=== PATIENT | female | born 1970 | race Caucasian/White ===

== ENCOUNTER 2023-05-06 17:34 | Emergency (ER) | payer OTHER, SELFPAY ==
[2023-05-06 17:35] VITALS: BP 140/73; PULSE 85; RESP 17; TEMP 36.2; O2SAT 98; BMI 26.0
--- NOTE | 2023-05-06 17:35 | RAD_ITS ---
INDICATION: Trauma, fall, ankle injury EXAMINATION/TECHNIQUE: X-RAY - RIGHT XR Ankle Min 3 Views 3 VIEWS COMPARISON: None. FINDINGS: SOFT TISSUES: No soft tissue swelling or gas. No radiopaque foreign body. BONES/JOINTS: Small piece of avulsed cortex at the dorsum of the anterior talus. Possible second fragment at the dorsal aspect of the tarsal navicular. Joint spaces anatomically aligned. No sclerotic or destructive changes observed. RAD/Ankle min 3 Views IMPRESSION: Cortical avulsion fracture from the dorsum of the anterior talus with possible second cortical avulsion fracture from the dorsum of the navicular. Electronically Signed: Robe Givens MD at 17:51 EDT ,
--- NOTE | 2023-05-06 19:10 | EDS_ITS ---
HPI History of Present Illness Chief Complaint: Lower Extremity Injury Informant: patient Narrative Narrative: Patient stumbled tripped and hurt her left foot ankle area shortly before arrival. No other injury. Hurts a little bit to bear weight but she is able t o. No pain above the ankle at all. No history of abnormal bone structure or significant prior injury to this ankle. She is not on any anticoagulation. [facility] Medical History Anxiety disorder Asthma Depression Fibroids Hyperlipidemia Maxillary sinusitis, acute Urinary tract infection Home Medications coenzyme [id number] E 100 mg-100 unit capsule cap PO 04/12/18 [History Last Taken Unknown] omega-3 fatty acids 1,000 mg capsule (Fish Oil Concentrate) 1,000 mg PO QDAY 04/12/18 [History Last Taken Unknown] vitamin B complex (B Complex-Vitamin B12 tablet) 1 tab PO QDAY 04/12/18 [History Last Taken Unknown] L.acidoph, paracasei,B. lactis 10 billion cell capsule (Digestive Advantage Advanced Probiotic) cell PO 05/13/21 [History Last Taken Unknown] cholecalciferol (vitamin D3) 125 mcg (5,000 unit) capsule 125 mcg PO DAILY 05/13/21 [History Last Taken Unknown] multivitamin 1 tab PO DAILY 05/13/21 [History Last Taken Unknown] vitamin B complex (B Complex-Vitamin B12 tablet) 1 tab PO DAILY 05/13/21 [Hist ory Last Taken Unknown] albuterol sulfate 90 mcg/actuation aerosol inhaler (Ventolin HFA) 2 puff inhalation Q4H PRN asthma #37.2 grams 10/14/21 [Rx Last Taken Unknown] fluoxetine 20 mg capsule 20 mg PO DAILY depression #90 caps 10/14/21 [Rx Last Taken Unknown] fluticasone propionate 50 mcg/actuation nasal spray,suspension (Allergy Relief (fluticasone)) 1 spray intranasal BID 10/14/21 [History Last Taken Unknown] ibuprofen 800 mg tablet 800 mg PO BID PRN dysmenorrhea #90 tabs 10/14/21 [Rx Last Taken Unknown] azelastine 137 mcg (0.1 %) nasal spray aerosol 2 spray intranasal QDAY #90 mL 04/28/22 [Rx Last Taken Unknown] fluticasone propionate 113 mcg/actuation breath activated pwdr inhal,sensor 1 inh inhalation BID #2 ea 05/25/22 [Rx Last Taken Unknown] amoxicillin 875 mg-potassium clavulanate 125 mg tablet 1 tab PO BID #20 tabs 07/15/22 [Rx Last Taken Unknown] fluconazole 150 mg tablet 150 mg PO Q3D 2 doses #2 tabs 07/15/22 [Rx Last Taken Unknown] prednisone 20 mg tablet 40 mg (2 x 20 mg) PO DAILY #20 tabs 07/15/22 [Rx Last Taken Unknown] clarithromycin 500 mg tablet 500 mg PO BID #20 tabs 07/27/22 [Rx Last Taken Unknown] Allergy/AdvReac Type Severity Reaction Status Date / Time No Known Allergies Allergy Verified 05/06/23 17:35 Family History Mother Breast cancer Diabetes Father Myocardial infarction Grandmother Myocardial infarction Daughter Thyroid disorder Social History Smoking Status: Never smoker second hand exposure: Yes alcohol intake: current details: mixed drink every few months substance use type: does not use what type of physical activity do you participate in: none and other details: 15,000 steps per day at restaurant ROS ROS ED Constitutional Constitutional ED: Denies chills or fever(s) Cardiovascular Cardiovascular: Denies chest pain Respiratory/Chest Respiratory/Chest: Denies cough or dyspnea Gastrointestinal Gastrointestinal: Denies nausea or vomiting Musculoskeletal Musculoskeletal: Reports arthralgias and other Details: See history of present illness ; Denies back pain or neck pain Integumentary Denies Abrasions or rash Neurologic Neurologic: Denies paresthesias or weakness Hematologic/Lymphatic Hematologic/Lymphatic: Denies easy bleeding or easy bruising EXAM Physical Exam Narrative Exam Narrative: Patient is awake alert no acute distress. HEENT shows no sign of trauma Neck is free range of motion Cardiorespiratory shows easy unlabored breathing. Extremities show small amount of swelling over the lateral malleolus but she is not really tender there. It is stable to drawer inversion and eversion. There is no tenderness the calcaneus or fifth metatarsal. Achilles is intact. Patient has minimal even tenderness on the dorsum of the foot where her x-ray seems to show some avulsions. Const Vital Signs: 05/06/23 17:35 Temperature 97.2 F L Temperature Source Temporal Pulse Rate 85 Respiratory Rate 17 Blood Pressure 140/73 H Blood Pressure Mean 95 Pulse Ox 98 Oxygen Delivery Method Room Air MDM MDM MDM Narrative Medical decision making narrative: My independent her potation the patient's three-view x-ray of her ankle show a vulsions of the dorsum of the talus and navicular. On the exam these do look to be acute. She has minimal tenderness there though. Final reading is similar. But I do think this is a real fracture considering her recent injury. I will place in a boot orthosis. These should heal well. But explained that she should get follow-up imaging. She states is not really hurting that much. I think [id number] meds should be appropriate for this. Radiography Diagnostic Testing: Clinical Impression(s) from Imaging Studies Ankle X-Ray 05/06/23 17:35 IMPRESSION: Cortical avulsion fracture from the dorsum of the anterior talus with possible second cortical avulsion fracture from the dorsum of the navicular. Electronically Signed: Robe Givens MD at 17:51 EDT , Discharge Plan Triage Chief Complaint: Lower Extremity Injury ED Provider: Rufus Betancur Dx/Rx/DC Orders Clinical Impression: Avulsion fracture of talus, Fx navicular, foot-closed Instructions: ED Fracture, Foot Prescriptions: No Action omega-3 fatty acids [Fish Oil Concentrate] 1,000 mg capsule 1,000 mg PO QDAY coenzyme [id number] E 100 mg-100 unit capsule 100-100 mg-unit capsule PO vitamin B complex [B Complex-Vitamin B12] tablet 1 tab PO QDAY cholecalciferol (vitamin D3) 125 mcg (5,000 unit) capsule 125 mcg PO DAILY vitamin B complex [B Complex-Vitamin B12] Tablet 1 tab PO DAILY Digestive Advantage Advanced 10 billion cell capsule PO multivitamin Tablet 1 tab PO DAILY albuterol sulfate [Ventolin HFA] 90 mcg/actuation HFA aerosol inhaler 2 puff inhalation Q4H PRN (Reason: asthma) Qty: 37.2 3RF fluoxetine 20 mg capsule 20 mg PO DAILY Qty: 90 3RF ibuprofen 800 mg tablet 800 mg PO BID PRN (Reason: dysmenorrhea) Qty: 90 3RF fluticasone propionate [Allergy Relief (fluticasone)] 50 mcg/actuation spray,suspension 1 spray intranasal BID Rx Instructions: administer into each nostril fluticasone propionate 113 mcg/actuation aero powdr breath act w/sensor 1 inh inhalation BID Qty: 2 0RF prednisone 20 mg tablet 40 mg PO DAILY Qty: 20 0RF amoxicillin-pot clavulanate 875-125 mg tablet 1 tab PO BID Qty: 20 0RF fluconazole 150 mg tablet 150 mg PO Q3D Qty: 2 1RF azelastine 137 mcg (0.1 %) aerosol,spray 2 spray INTRANASAL QDAY Qty: 90 1RF Rx Instructions: administer into each nostril clarithromycin 500 mg tablet 500 mg PO BID Qty: 20 0RF Rx Instructions: take with food Primary Care Provider: Nai Ibrahim Referrals: Nai Ibrahim MD [Primary Care Provider] - Shayan Brito MD [Med Staff - Active Staff] - 1 Week Disposition Disposition: Home, Self Care
[2023-05-06 19:16] VITALS: PULSE 74; RESP 16; O2SAT 98
== END 2023-05-06 19:35 | disposition home or self-care (01) ==
PROVIDERS: Emergency Provider Emergency Medicine; PCP Family Medicine; Visit Provider Emergency Medicine
DX: S92.151A Displaced avulsion fracture (chip fracture) of right talus, initial encounter for closed fracture (principal); S92.251A Displaced fracture of navicular [scaphoid] of right foot, initial encounter for closed fracture; X58.XXXA Exposure to other specified factors, initial encounter
CPT/HCPCS: 73610; 99283